=== PATIENT | female | born 1990 | race American Indian/Alaskan Native ===

== ENCOUNTER 2017-09-28 11:16 | Outpatient (CLI) | payer SELFPAY ==
[2017-09-28 11:32] VITALS: BP 108/66
--- NOTE | 2017-09-28 14:27 | Ultrasound Report ---
ULTRASOUND OB LIMITED History: labor Technique: Transabdominal ultrasound with Doppler interrogation. Gestation: Single Position: Followup Amniotic Fluid: Normal BRE = 15.0 cm Heart Rate: 153 BPM
== END 2017-09-28 13:13 | disposition home or self-care (01) ==
LOC: TRG 11:16
PROVIDERS: ATTEND Obstetrics & Gynecology
DX: O47.03 False labor before 37 completed weeks of gestation, third trimester (principal); Z3A.34 34 weeks gestation of pregnancy
CPT/HCPCS: 59025; 76815

== ENCOUNTER 2017-10-09 18:24 | Outpatient (CLI) | payer MEDICAID, OTHER ==
[2017-10-09 19:51] VITALS: BP 115/94
[2017-10-09 20:52] LABS: Bacteria,Urine 1+ /HPF (Negative); Bilirubin,Urine NEG (Negative); Blood,Urine NEG (Negative); Color,Urine Yellow (Yellow); Mucus,Urine FEW /HPF; Protein,Urine <15 mg/dL mg/dL (Negative); Urobilinogen,Urine < 2.0 mg/dL (<2.0)
[2017-10-09] MEDS ORDERED: LACTATED RINGERS 1,000 ML ONE ×2 (21:44→22:03)
== END 2017-10-09 23:00 | disposition home or self-care (01) ==
LOC: TRG 18:24
PROVIDERS: ATTEND Obstetrics & Gynecology
DX: O47.03 False labor before 37 completed weeks of gestation, third trimester (principal); Z3A.35 35 weeks gestation of pregnancy
CPT/HCPCS: 81001; 96360; J7120

== ENCOUNTER 2017-10-30 20:41 | Outpatient (CLI) | payer MEDICAID ==
[2017-10-30 21:15] VITALS: BP 109/69
[2017-10-31] MEDS ORDERED: VISTARIL PO PRN (00:31)
== END 2017-10-31 01:15 | disposition home or self-care (01) ==
LOC: TRG 20:41
PROVIDERS: ATTEND Obstetrics & Gynecology
DX: O62.9 Abnormality of forces of labor, unspecified (principal); Z3A.39 39 weeks gestation of pregnancy